=== PATIENT | male | born 1960 | race Caucasian/White ===

== ENCOUNTER 2017-04-28 17:19 | Emergency (ER) | payer OTHER ==
[~2017-04-28] VITALS: Ht 175.3 cm; Wt 70.3 kg
[~2017-04-28 17:19] MED LIST: BACTRIM DS TAB1 EACH PO; CARISOPRODOL 3350 MG PO; CLINDAMYCIN HC150 MG PO; HYDROCODONE-IB1 EACH PO; IBUPROFEN 400400 M2 PO; IBUPROFEN 600600 M1 PO; IBUPROFEN 800800 M1 PO; IBUPROFEN200 M1 PO; KEFLEX500 MG PO; LISINOPRIL10 MG PO; NAPROSYN500 MG PO; NORCO 5-325 TA1 EACH PO; NORFLEX100 MG PO; OMEPRAZOLE 20 M20 M1 PO; OMEPRAZOLE40 MG PO; PRINIVIL20 MG PO; ULTRAM 50MG TAB50 MG PO; VALIUM2 MG PO; VALIUM5 MG PO
[2017-04-28 17:21] VITALS: BP 151/104
[2017-04-28] MEDS ORDERED: MOBIC15 MG PO (18:52)
== END 2017-04-28 19:11 | disposition home or self-care (01) ==
LOC: ER 17:19
DX: S83.92XA Sprain of unspecified site of left knee, initial encounter (principal); I10 Essential (primary) hypertension; F17.210 Nicotine dependence, cigarettes, uncomplicated; G89.29 Other chronic pain; Z90.81 Acquired absence of spleen; Z90.49 Acquired absence of other specified parts of digestive tract; Z98.890 Other specified postprocedural states; Z88.5 Allergy status to narcotic agent; W10.8XXA Fall (on) (from) other stairs and steps, initial encounter; Y93.89 Activity, other specified; Y92.009 Unspecified place in unspecified non-institutional (private) residence as the place of occurrence of the external cause; Y99.8 Other external cause status

== ENCOUNTER 2017-05-17 12:33 | Emergency (ER) | payer OTHER ==
[~2017-05-17] VITALS: Ht 175.3 cm; Wt 68.0 kg
--- NOTE | ~2017-05-17 | EKG ---
[address] [place] [address] ELECTROCARDIOGRAM REPORT Name: SORIN OSORIO Room #: [facility]P [facility] [id number] Admission: 05/17/17 Attend Phys: Discharge: 05/17/17 Date of : 62 Report #: [id number] THIS REPORT FOR: //name// [facility] ED Test Date: 2017-05-17 Test Time: 14:39:56 Pat Name: SORIN OSORIO Department: Room: Gender: Assistant Front End Manager: Estephania FUNES : 1960 Requested By: Sonali Latham Order Number: [id number] MD: Kemar Porter Measurements Intervals [place] Rate: 52 P: 40 AL: 142 QRS: 82 QRSD: 106 T: 63 QT: 462 QTc: 430 Interpretive Statements Sinus rhythm Anterior infarct, old No previous ECG available for comparison Electronically Signed On 05-18-2017 8:02:07 CDT by Kemar Porter [email or web address] <ELECTRONICALLY SIGNED> By: Kemar Porter MD, [facility] 05/18/17 0802 [id number] 1439 Kemar Porter MD, FACC /EPI
[~2017-05-17 12:33] MED LIST changes: +MOBIC15 MG PO
[2017-05-17 14:50] LABS: ABSOLUTE NEUTROPHILS 5.5 thou/uL (1.4-8.2); BASOPHILS 1.2 % (0.0-2.0); HEMATOCRIT 41.4 % (42.0-52.0); HEMOGLOBIN 13.9 gm/dL (14.0-18.0); LYMPHOCYTES 28.8 % (24.0-44.0); MANUAL DIFF NO; MCH 31.2 pg (26.0-34.0); MCHC 33.7 g/dL (28.0-37.0); MCV 92.7 fL (80.0-100.0); MONOCYTES 8.5 % (1.0-8.0); PLATELET COUNT 501 thou/uL (150-400); POLYS 57.5 % (36.0-66.0); RBC 4.46 mil/uL (4.50-6.00); RDW 14.3 % (10.5-14.5); WBC 9.5 thou/uL (4.0-11.0)
[2017-05-17 14:59] LABS: ANION GAP 6 mmol/L (7-16); BUN 17 mg/dL (7-18); CALCIUM 8.8 mg/dL (8.5-10.1); CHLORIDE 107 mmol/L (98-107); CO2 25 mmol/L (21-32); GLUCOSE 131 mg/dL (74-106); POTASSIUM 4.3 mmol/L (3.5-5.1); SODIUM 138 mmol/L (136-145)
[2017-05-17 15:08] LABS: TROPONIN-I < 0.04 ng/mL (<0.04-0.07)
[2017-05-17] MEDS ORDERED: VENTOLIN HFA 1818 GM INH (15:31)
[2017-05-17] MEDS ORDERED: ROBITUSSIN100 MG/53 PO (15:31)
[2017-05-17 16:05] VITALS: BP 143/83
== END 2017-05-17 16:05 | disposition home or self-care (01) ==
LOC: ER 12:33
PROVIDERS: Physician Assistant
DX: J44.9 Chronic obstructive pulmonary disease, unspecified (principal); R91.8 Other nonspecific abnormal finding of lung field; G89.29 Other chronic pain; M54.9 Dorsalgia, unspecified; I10 Essential (primary) hypertension; F17.210 Nicotine dependence, cigarettes, uncomplicated; Z86.19 Personal history of other infectious and parasitic diseases; Z90.49 Acquired absence of other specified parts of digestive tract; Z88.5 Allergy status to narcotic agent